=== PATIENT | female | born 1955 | race African-American/Black ===

== ENCOUNTER 2018-10-13 11:03 | Emergency (ER) | payer MEDICAID ==
[2018-10-13] MEDS: ALPRAZOLAM 0.25 MG TAB PO (12:07)
[2018-10-13] MEDS: SOD CHLORIDE 0.9% 500 ML IV (12:09)
[2018-10-13] MEDS: AMLODIPINE 10 MG TAB PO (12:23)
[2018-10-13] MEDS: HYDROCHLOROTHIAZIDE 25 MG TAB PO (12:23)
== END 2018-10-13 14:54 | disposition home or self-care (01) ==
LOC: E/R 11:03
DX: I10 Essential (primary) hypertension (principal); F41.9 Anxiety disorder, unspecified
CPT/HCPCS: 99284-25; J7040